=== PATIENT | male | born 1970 | race Caucasian/White ===

== ENCOUNTER 2016-07-12 15:30 | Emergency (ER) | payer OTHER ==
[~2016-07-12] VITALS: Ht 167.6 cm; Wt 84.5 kg
[2016-07-12 15:40] VITALS: TEMP 37; Ht 167.6 cm; Wt 84.5 kg
[2016-07-12] MEDS ORDERED: IBUPROFEN 600 MG TAB PO STA (15:48)
--- NOTE | 2016-07-12 16:09 | DIAGNOSTIC IMAGING REPORT ---
RIGHT WRIST MIN 3 VIEWS ROUTINE CLINICAL HISTORY: injury Right trauma. Pain. COMPARISON: None. DISCUSSION: Nondisplaced transverse fracture distal radius. Fracture is again nondisplaced and extends to the articular services. No significant bony distraction. All remaining osseous structures are unremarkable. Moderate soft tissue edema. IMPRESSION: Transverse nondisplaced cortical fracture distal radius Electronically signed by: Jcarlos Cintron M.D. 07/12/2016 4:08 PM Dictated Date/Time: 07/12/2016 4:07 PM
[2016-07-12] MEDS ORDERED: SIMV5TAB2 PO (16:16)
[2016-07-12] MEDS ORDERED: HYDR-5688 PO (16:22)
[2016-07-12 16:38] VITALS: BP 139/80; PULSE 107; O2SAT 98
--- NOTE | 2016-07-12 17:20 | EMERGENCY ROOM VISIT NOTE ---
ED Visit Note First contact with patient: 15:43 Chief Complaint: Right wrist pain. History of Present Illness: Mr. Gonzales is a 45. All white male who ambulates into the ED complaining of right distal radius pain. Patient reports approximately 1.5 hours ago he was trying turn over a tractor with a crank. He reports as he turned crank it snapped backwards and jammed his right wrist. Since that time he has been having constant pain over the distal radius and minimally into the ulna. He describes his pain as a throbbing and sharp sensation. He rates his discomfort 8/10. Pain is nonradiating. The pain slightly improves when he keeps his wrist dependent and worsens when he raises his hand, attempts to move his wrist or when the distal radius and ulna are palpated. He has not taken any medications for pain prior to arrival at the hospital. He denies any associated symptoms including elbow pain, proximal forearm pain, hand pain, hand weakness/numbness/tingling. Additionally he denies any previous significant injuries or surgeries to the right wrist. Review of Systems: As noted above in history of present illness. Past Medical History: Hypertension, , dyslipidemia, status post tonsillectomy. Current Medications: Zocor. Allergies to Medications: Patient denies. Social History: Patient is currently employed; he feels safe in his home environment; he admits to chewing tobacco and alcohol use. Physical Examination: Vital Signs: Date Time Temp Pulse Resp B/P Pulse Ox O2 Delivery O2 Flow Rate FiO2 07/12/16 16:38 107 18 139/80 98 Room Air 07/12/16 15:40 37.0 117 20 151/91 97 Room Air GENERAL: 45-year-old male in mild to moderate distress due to pain, nontoxic- appearing, afebrile and hemodynamically stable. NEUROLOGICAL: Awake, alert and oriented to person, place and time. Answering questions appropriately and following commands. Normal gait. SKIN: Warm, dry and pink. No soft tissue trauma noted. RIGHT UPPER EXTREMITY: No gross bony deformity. No tenderness throughout the upper arm, elbow or proximal forearm. Moderate tenderness and swelling over the distal radius and minimally into the ulna. No bony crepitus or ecchymosis. Patient refused to do range of motion exercises due to pain. No tenderness throughout the hand or fingers. The skin was warm and pink and capillary refill is brisk. He was able to distinguish light sensations through all dermatomes of the hand. ED Course: Patient is assessed as noted above. Right Wrist X-Rays: Were read by myself and the radiologist showing a distal ulna fracture that is intra-articular. No displacement. Patient was given ice and 600 mg of ibuprofen by mouth for pain. Patient was placed in a Ortho-Glass volar splint to immobilize the fracture. Patient was educated about tonight's findings and instructed on his treatment plan; he verbalizes understanding and agreement with this plan. Clinical Impression: Distal right radius fracture. Disposition: Patient discharged home in stable condition accompanied by his ; prior to departure he was reassessed and subjectively reported he was feeling better and rated his discomfort 4/10. Plan: Comfort measures were discussed with the patient including rest, ice, splint use and a sliding pain medication scale of ibuprofen, acetaminophen and [place]; he was given appropriate precautions for narcotics abuse. Additionally the [facility] database was reviewed and no significant red flags were identified. Patient was encouraged to follow-up with [facility] for definitive care and treatment. Patient was encouraged return the ED for worsening/uncontrolled pain, uncontrolled swelling, hand/finger weakness/numbness/tingling or any new/ concerning symptoms.
== END 2016-07-12 16:39 | disposition home or self-care (01) ==
LOC: C.EDB 15:32 → C.EDD 16:39
DX: S52.591A Other fractures of lower end of right radius, initial encounter for closed fracture (principal); W22.8XXA Striking against or struck by other objects, initial encounter; Y92.89 Other specified places as the place of occurrence of the external cause; I10 Essential (primary) hypertension; E78.5 Hyperlipidemia, unspecified; Z79.899 Other long term (current) drug therapy; Z72.0 Tobacco use